=== PATIENT | male | born 1970 ===

== ENCOUNTER 2020-12-31 20:43 | Inpatient (IN) ==
[2020-12-31 21:12] LABS: Basophils # 0.1 10*3/uL (0.0-0.2); Basophils % 0.4 % (0.0-0.8); Eosinophils % 0.1 % (0.00-10.9); Hemoglobin 17.6 GM/DL (14.0-18.0); Immature Granulocytes % 0.5 %; Immature Granulocytes Absolute 0.08 #; Lymphocytes # 1.6 10*3/uL (1.4-4.0); Lymphocytes % 9.6 % (21.2-54.2); Mean Corpuscular HGB Conc 35.2 GM/DL (32-36); Mean Corpuscular Volume 86.7 FL (87-102); Mean Platelet Volume 9.5 FL (9.6-12.0); Monocytes % 5.6 % (1.7-12.7); Neutrophils % 83.8 % (38.7-73.9); Platelet Count 284 T/CUMM (130-400); Red Blood Count 5.77 MC/CUMM (3.8-5.5); Red Cell Distribution Width 12.1 % (9.3-17.3); White Blood Count 17.1 T/CUMM (4-12)
[2020-12-31 21:38] LABS: Albumin 4.3 G/DL (3.4-5.0); Osmolality,Calculated 285.4 MOS/KG (273-304); Potassium 4.2 MMOL/L (3.5-5.1); Total Protein 8.1 G/DL (6.4-8.2)
[2020-12-31] MEDS ORDERED: SODIUM CHLORIDE 0.9% 1,000 ML IV STA (22:11)
[2020-12-31] MEDS ORDERED: PIPERACILLIN/TAZOBACTAM 3,375 MG in SODIUM CHLORIDE 0.9% 100 ML IV STA (22:11)
[2020-12-31] MEDS ORDERED: TISSUE ADHESIVE 1 EACH APPLICATOR TOP ONE (22:49)
[2020-12-31] MEDS ORDERED: fentaNYL 100 MCG/2 ML VIAL ONE (22:49)
[2020-12-31] MEDS ORDERED: propofoL 200 MG/20 ML VIAL IV ONE (22:49)
[2020-12-31] MEDS ORDERED: LIDOCAINE 1%/EPI INJ 20 ML VIAL ONE (22:49)
[2020-12-31] MEDS ORDERED: LIDOCAINE 2% 5 ML VIAL ONE (22:49)
[2020-12-31] MEDS ORDERED: ROCURONIUM 50 MG/5 ML VIAL IV ONE (22:49)
[2020-12-31] MEDS ORDERED: BUPIVACAINE MPF 0.25% 30 ML VIAL ONE (22:49)
[2020-12-31] MEDS ORDERED: SUCCINYLCHOLINE 200 MG/10 ML VIAL ONE (22:49)
[2020-12-31] MEDS ORDERED: ONDANSETRON 4 MG/2 ML VIAL ONE (22:49)
[2020-12-31] MEDS ORDERED: METOCLOPRAMIDE 10 MG/2 ML VIAL ONE (23:04)
[2020-12-31] MEDS ORDERED: diphenhydrAMINE 50 MG/1 ML VIAL IV PRN (23:06)
[2020-12-31] MEDS ORDERED: PROMETHAZINE INJ 25 MG in SODIUM CHLORIDE 0.9% 50 ML IV PRN (23:06)
[2020-12-31] MEDS ORDERED: MEPERIDINE 25 MG/1 ML VIAL IV PRN (23:06)
[2020-12-31] MEDS ORDERED: ONDANSETRON 4 MG/2 ML VIAL IV PRN (23:06)
[2020-12-31] MEDS ORDERED: ALBUTEROL INHALER 18 GM INH ONE (23:34)
[2021-01-01] MEDS ORDERED: SEVOFLURANE 1 UNIT/15 MINUTE INH ONE (00:05)
[2021-01-01] MEDS ORDERED: GLYCOPYRROLATE 0.4 MG/2 ML VIAL ONE (00:05)
[2021-01-01] MEDS ORDERED: CALCIUM CHLORIDE 1,000 MG/10 ML VIAL IV ONE (00:05)
[2021-01-01] MEDS ORDERED: NEOSTIGMINE 10 MG/10 ML VIAL ONE (00:06)
[2021-01-01] MEDS ORDERED: MORPHINE 2 MG/1 ML SYRINGE IV PRN ×2 (00:15)
[2021-01-01] MEDS ORDERED: ONDANSETRON 4 MG/2 ML VIAL IV PRN (00:15)
[2021-01-01] MEDS ORDERED: ACETAMINOPHEN 325 MG TABLET PO PRN (00:15)
[2021-01-01] MEDS: HYDROmorphone 2 MG/1 ML VIAL IV PRN ×4 (00:25→00:40)
[2021-01-01] MEDS: LACTATED RINGERS 1,000 ML IV SCH (00:43)
[2021-01-01] MEDS ORDERED: PNEUMOCOCCAL VACCINE (23 VALENT) 0.5 ML VIAL IM ONE (01:27)
[2021-01-01] MEDS: PIPERACILLIN/TAZOBACTAM 3,375 MG in SODIUM CHLORIDE 0.9% 100 ML IV SCH ×3 (05:15→22:01)
[2021-01-01 06:02] LABS: Basophils # 0.1 10*3/uL (0.0-0.2); Basophils % 0.3 % (0.0-0.8); Eosinophils # 0.1 10*3/uL (0.0-0.87); Eosinophils % 0.3 % (0.00-10.9); Hematocrit 47.6 VOL% (42.0-52.0); Hemoglobin 15.9 GM/DL (14.0-18.0); Immature Granulocytes % 0.6 %; Lymphocytes # 2.3 10*3/uL (1.4-4.0); Lymphocytes % 14.3 % (21.2-54.2); Mean Corpuscular HGB Conc 33.4 GM/DL (32-36); Mean Corpuscular Volume 92.2 FL (87-102); Mean Platelet Volume 9.5 FL (9.6-12.0); Monocytes % 7.4 % (1.7-12.7); Neutrophils % 77.1 % (38.7-73.9); Platelet Count 228 T/CUMM (130-400); Red Blood Count 5.16 MC/CUMM (3.8-5.5); Red Cell Distribution Width 12.3 % (9.3-17.3); White Blood Count 15.9 T/CUMM (4-12)
[2021-01-01 06:28] LABS: Calcium 9.1 MG/DL (8.5-10.1); Osmolality,Calculated 284.8 MOS/KG (273-304); Potassium 4.6 MMOL/L (3.5-5.1)
[2021-01-01] MEDS ORDERED: PHENOL 1.4% THROAT SPRAY 177 ML BOTTLE PO PRN (06:36)
[2021-01-01] MEDS: PANTOPRAZOLE 40 MG VIAL IV SCH (08:34)
[2021-01-01] MEDS: INSULIN REGULAR 100 UNIT/ML SUBCUT SCH ×4 (09:34→21:59)
[2021-01-01] MEDS ORDERED: INSULIN GLARGINE 100 UNIT/ML SUBCUT SCH (21:00)
[2021-01-01] MEDS: SACUBITRIL/VALSARTAN 49-51 MG TABLET PO SCH (21:58)
[2021-01-02] MEDS: LACTATED RINGERS 1,000 ML IV SCH (01:45)
[2021-01-02 05:27] LABS: Basophils % 0.4 % (0.0-0.8); Eosinophils # 0.1 10*3/uL (0.0-0.87); Hematocrit 42.9 VOL% (42.0-52.0); Hemoglobin 14.3 GM/DL (14.0-18.0); Immature Granulocytes % 0.4 %; Immature Granulocytes Absolute 0.04 #; Lymphocytes % 18.1 % (21.2-54.2); Mean Corpuscular HGB Conc 33.3 GM/DL (32-36); Mean Corpuscular Volume 91.9 FL (87-102); Mean Platelet Volume 9.6 FL (9.6-12.0); Monocytes % 10.4 % (1.7-12.7); Neutrophils % 69.7 % (38.7-73.9); Platelet Count 189 T/CUMM (130-400); Red Blood Count 4.67 MC/CUMM (3.8-5.5)
[2021-01-02 05:57] LABS: Calcium 8.2 MG/DL (8.5-10.1); Osmolality,Calculated 272.4 MOS/KG (273-304); Potassium 3.4 MMOL/L (3.5-5.1)
[2021-01-02 06:01] LABS: Risk Ratio 4.15
[2021-01-02] MEDS: PIPERACILLIN/TAZOBACTAM 3,375 MG in SODIUM CHLORIDE 0.9% 100 ML IV SCH ×3 (06:37→22:16)
[2021-01-02] MEDS ORDERED: POTASSIUM CHLORIDE 20 MEQ TABLET PO ONE (09:00)
[2021-01-02] MEDS: INSULIN REGULAR 100 UNIT/ML SUBCUT SCH ×4 (09:31→20:58)
[2021-01-02] MEDS: SACUBITRIL/VALSARTAN 49-51 MG TABLET PO SCH ×2 (09:32→20:57)
[2021-01-02] MEDS: PANTOPRAZOLE 40 MG VIAL IV SCH (09:40)
[2021-01-02] MEDS ORDERED: GLUCAGON 1 MG VIAL IM PRN (10:48)
[2021-01-02] MEDS ORDERED: DEXTROSE 50% 25 GM/50 ML VIAL IV PRN (10:48)
[2021-01-02] MEDS ORDERED: INSULIN GLARGINE 100 UNIT/ML SUBCUT SCH (21:00)
[2021-01-02] MEDS ORDERED: ATORVASTATIN 20 MG TABLET PO SCH (21:00)
[2021-01-03 05:34] LABS: Basophils % 0.4 % (0.0-0.8); Eosinophils # 0.2 10*3/uL (0.0-0.87); Eosinophils % 1.8 % (0.00-10.9); Hematocrit 42.1 VOL% (42.0-52.0); Hemoglobin 14.3 GM/DL (14.0-18.0); Immature Granulocytes % 0.5 %; Immature Granulocytes Absolute 0.05 #; Lymphocytes # 1.9 10*3/uL (1.4-4.0); Lymphocytes % 18.6 % (21.2-54.2); Mean Corpuscular Volume 91.5 FL (87-102); Mean Platelet Volume 9.2 FL (9.6-12.0); Monocytes % 10.9 % (1.7-12.7); Neutrophils % 67.8 % (38.7-73.9); Platelet Count 190 T/CUMM (130-400); Red Cell Distribution Width 11.9 % (9.3-17.3); White Blood Count 9.9 T/CUMM (4-12)
[2021-01-03 06:04] LABS: Calcium 8.2 MG/DL (8.5-10.1); Osmolality,Calculated 276.8 MOS/KG (273-304); Potassium 3.8 MMOL/L (3.5-5.1)
[2021-01-03] MEDS: PIPERACILLIN/TAZOBACTAM 3,375 MG in SODIUM CHLORIDE 0.9% 100 ML IV SCH (07:32)
[2021-01-03 07:38] VITALS: BP 113/75
[2021-01-03] MEDS: INSULIN REGULAR 100 UNIT/ML SUBCUT SCH ×2 (07:40→12:11)
[2021-01-03] MEDS: SACUBITRIL/VALSARTAN 49-51 MG TABLET PO SCH (08:45)
[2021-01-03] MEDS: PANTOPRAZOLE 40 MG VIAL IV SCH (08:47)
[2021-01-03] MEDS ORDERED: INSULIN GLARGINE 100 UNIT/ML SUBCUT SCH (21:00)
== END 2021-01-03 12:10 | disposition home or self-care (01) | DRG 329 ==
LOC: N.ED 20:43 → N.3E 23:10
PROVIDERS: ADMIT Surgery; ATTEND Surgery